=== PATIENT | male | born 1975 | race Caucasian/White ===

== ENCOUNTER 2022-07-29 22:04 | Emergency (ER) | payer MEDICAID ==
[~2022-07-29] VITALS: Ht 165.1 cm; Wt 90.7 kg
[2022-07-29 22:15] VITALS: BP_SYST 122
--- NOTE | 2022-07-29 22:21 | NUR ---
Patient triaged and remains on [facility] . VSS and patient appears in no acute distress at this time. Accompanied by EMS , awaiting available bed, and MD notified of need for MSE.
--- NOTE | 2022-07-30 01:35 | NUR ---
Patient to ER bed 6 to gown for evaluation. Side rails up. Report given to Emelyn WATT(reg).
--- NOTE | 2022-07-30 01:47 | NUR ---
Patient leaving hospital at this time. When asked to come back, patient said fuck you.
--- NOTE | 2022-07-30 01:52 | NUR ---
Patient walked back into hospital and walked back into room 6. Steady gait.
[2022-07-30 02:30] VITALS: BP_SYST 145
--- NOTE | 2022-07-30 02:30 | NUR ---
Patient given written and verbal discharge instructions and verbalizes understanding. ER MD discussed with patient the results and treatment provided. Patient in stable condition. ID arm band removed. Patient educated on pain management and to follow up with PMD. Pain Scale 0/10. Opportunity for questions provided and answered.
== END 2022-07-30 02:30 | disposition home or self-care (01) ==
LOC: EDBD 22:04 → SED 22:04
DX: F10.129 Alcohol abuse with intoxication, unspecified (principal); Y90.6 Blood alcohol level of 120-199 mg/100 ml
CPT/HCPCS: 99281

== ENCOUNTER 2022-09-10 19:43 | Emergency (ER) | payer MEDICAID ==
[~2022-09-10] VITALS: Ht 180.3 cm; Wt 124.7 kg
[2022-09-10 19:51] VITALS: BP_SYST 118
[2022-09-10 21:10] LABS: BASOPHILS % (AUTO) 0.4 % (0.0-2.0); EOSINOPHILS # (AUTO) 0.1 K/uL (0.0-0.4); EOSINOPHILS % (AUTO) 0.8 % (0.0-4.0); HEMATOCRIT 41.7 % (36-54); HEMOGLOBIN 13.9 g/dL (14.0-18.0); LYMPHOCYTES # (AUTO) 2.1 K/uL (1.0-5.5); LYMPHOCYTES % (AUTO) 23.8 % (20.5-51.5); MEAN CORPUSCULAR HEMOGLOBIN 29 pg (27-31); MEAN CORPUSCULAR HGB CONC 33 % (32-36); MEAN CORPUSCULAR VOLUME 89 fL (79.0-98.0); MONOCYTES # (AUTO) 0.8 K/uL (0.0-1.0); MONOCYTES % (AUTO) 8.7 % (1.7-9.3); NEUTROPHILS # (AUTO) 5.9 K/uL (1.8-7.7); NEUTROPHILS % (AUTO) 66.3 % (40.0-70.0); PLATELET COUNT (AUTO) 285 K/uL (130-430); RED BLOOD CELL COUNT(AUTO) 4.72 MIL/uL (4.2-6.2); WHITE BLOOD COUNT (AUTO) 8.9 K/uL (4.8-10.8)
[2022-09-10 21:24] LABS: ACETONE, SERUM NEGATIVE (NEGATIVE)
[2022-09-10] MEDS ORDERED: cloNIDine HCL 0.1 MG TABLET PO ONE (21:30)
[2022-09-10] MEDS ORDERED: ONDANSETRON 4 MG ODT TAB PO ONE (21:30)
[2022-09-10 21:33] LABS: ACETAMINOPHEN < 1 ug/mL (1-30); ALANINE AMINOTRANSFERASE 34 U/L (12-78); ALBUMIN 3.4 g/dL (3.4-4.8); ALCOHOL, BLOOD 275 mg/dL (<10); ANION GAP 11 (5-15); ASPARTATE AMINOTRANSFERASE 31 U/L (10-37); CALCIUM 7.8 mg/dL (8.4-11.0); CHLORIDE 104 mmol/L (98-107); CREATININE 1.11 mg/dL (0.55-1.30); GFR AFRICAN AMERICAN 92 mL/min (>90); GLUCOSE 99 mg/dL (70-99); TOTAL BILIRUBIN 0.2 mg/dL (0.0-1.0); UREA NITROGEN, BLOOD 9 mg/dL (8-21)
[2022-09-10 22:25] LABS: BARBITURATE, URINE NEGATIVE (NEG <=200); BENZODIAZEPINE, URINE POSITIVE (NEG <=150); CANNABINOID, URINE NEGATIVE (NEG <=50); COCAINE, URINE NEGATIVE (NEG <=150); METHAMPHETAMINES SCREEN,URINE NEGATIVE (NEG <=500); OPIATE, URINE NEGATIVE (NEG <=100); PHENCYCLIDINE SCREEN,URINE NEGATIVE (NEG <=25); UR TRICYCLIC ANTIDEPRESSANTS NEGATIVE (NEG <=300); URINE AMPHETAMINE NEGATIVE (NEG <=500); URINE METHADONE NEGATIVE (NEG <=200); URINE OXYCODONE SCREEN NEGATIVE (NEG <=100); URINE PROPOXYPHENE SCREEN NEGATIVE (NEG <=300)
--- NOTE | 2022-09-10 22:41 | NUR ---
Patient to [facility] [place]. Side rails up. Report given to SHUKRI ANDRES
--- NOTE | 2022-09-10 22:50 | NUR ---
pt in bed. slurred speach due to alcohol. pt denies pain
--- NOTE | 2022-09-11 00:14 | NUR ---
PT PROVIDED WATER AND SANDWHICH. PT ON MONITOR
[2022-09-11] MEDS ORDERED: cloNIDine HCL 0.1 MG TABLET ONE (00:24)
[2022-09-11] MEDS ORDERED: ONDANSETRON 4 MG ODT TAB ONE (00:43)
[2022-09-11] MEDS ORDERED: chlordiazePOXIDE HCL 25 MG CAPSULE PO ONE (02:45)
[2022-09-11] MEDS ORDERED: chlordiazePOXIDE HCL 25 MG CAPSULE ONE (03:51)
[2022-09-11 04:33] VITALS: BP_SYST 122
--- NOTE | 2022-09-11 04:33 | NUR ---
pt resting in bed.
--- NOTE | 2022-09-11 05:19 | NUR ---
pt a/ x 4 steady gait. no slurred speach
[2022-09-11] MEDS ORDERED: LIB25 PO (05:23)
--- NOTE | 2022-09-11 05:46 | NUR ---
printed out bus instructions for patient.
== END 2022-09-11 05:46 | disposition home or self-care (01) ==
LOC: SED 19:43
DX: F10.129 Alcohol abuse with intoxication, unspecified (principal); Z79.899 Other long term (current) drug therapy; Y90.6 Blood alcohol level of 120-199 mg/100 ml; Z20.822 Contact with and (suspected) exposure to COVID-19
CPT/HCPCS: 99283; 87426; 80307; 80053; 82009; 83690; 85025; 36415; G0482; Q0162; G0480; G0481

== ENCOUNTER 2022-09-11 11:48 | Emergency (ER) | payer MEDICAID ==
[~2022-09-11] VITALS: Ht 177.8 cm; Wt 111.1 kg
[~2022-09-11 11:48] MED LIST: LIB25 PO
[2022-09-11 12:03] VITALS: BP_SYST 111
--- NOTE | 2022-09-11 12:05 | NUR ---
Patient to ER bed 8 to gown for evaluation. Side rails up. Report given to ANAM WATT.
--- NOTE | 2022-09-11 12:06 | NUR ---
Report received from [facility] for continuity of care. Patient came from [employer] intoxicated and was sleeping. Merchandising Specialist called and patient to be escorted out, but patient was unable to walk. Merchandising Specialist held onto patient as he was stumbling and guided him to ground. Ambulance called. Blood sugar on scene was 156. Patient found to be lethargic. Will continue to monitor. Call light within reach.
--- NOTE | 2022-09-11 12:14 | NUR ---
ER at bedside examining patient.
[2022-09-11] MEDS ORDERED: NACL 0.9% 1,000 ML IV ONE (12:15)
[2022-09-11 12:53] LABS: BASOPHILS % (AUTO) 0.3 % (0.0-2.0); EOSINOPHILS % (AUTO) 0.6 % (0.0-4.0); HEMATOCRIT 35.5 % (36-54); HEMOGLOBIN 11.8 g/dL (14.0-18.0); LYMPHOCYTES # (AUTO) 1.6 K/uL (1.0-5.5); LYMPHOCYTES % (AUTO) 18.1 % (20.5-51.5); MEAN CORPUSCULAR HEMOGLOBIN 29 pg (27-31); MEAN CORPUSCULAR HGB CONC 33 % (32-36); MEAN CORPUSCULAR VOLUME 89 fL (79.0-98.0); MONOCYTES # (AUTO) 0.4 K/uL (0.0-1.0); MONOCYTES % (AUTO) 4.9 % (1.7-9.3); NEUTROPHILS # (AUTO) 6.8 K/uL (1.8-7.7); NEUTROPHILS % (AUTO) 76.1 % (40.0-70.0); PLATELET COUNT (AUTO) 280 K/uL (130-430)
--- NOTE | 2022-09-11 12:53 | NUR ---
Patient given written and verbal discharge instructions and verbalizes understanding. ER MD discussed with patient the results and treatment provided. Patient in stable condition. ID arm band removed. IV catheter removed intact and dressing applied, no active bleeding. Rx of ANTIBIOTIC given. Patient educated on pain management and to follow up with PMD. Opportunity for questions provided and answered. Medication side effect fact sheet provided.
[2022-09-11 13:06] LABS: ANION GAP 11 (5-15); CALCIUM 8.2 mg/dL (8.4-11.0); CHLORIDE 100 mmol/L (98-107); GFR AFRICAN AMERICAN 93 mL/min (>90); GLUCOSE 122 mg/dL (70-99); UREA NITROGEN, BLOOD 10 mg/dL (8-21)
[2022-09-11 13:22] LABS: ALANINE AMINOTRANSFERASE 37 U/L (12-78); ALBUMIN 3.7 g/dL (3.4-4.8); ASPARTATE AMINOTRANSFERASE 37 U/L (10-37); TOTAL BILIRUBIN 0.4 mg/dL (0.0-1.0)
[2022-09-11 13:37] LABS: ACETAMINOPHEN < 1 ug/mL (1-30)
[2022-09-11 13:38] LABS: ALCOHOL, BLOOD 437 mg/dL (<10)
[2022-09-11] MEDS ORDERED: THIAMINE HCL 100 MG TABLET PO ONE (13:45)
[2022-09-11 17:20] VITALS: BP_SYST 124
--- NOTE | 2022-09-11 17:23 | NUR ---
Patient given written and verbal discharge instructions and verbalizes understanding. ER MD discussed with patient the results and treatment provided. Patient in stable condition. ID arm band removed. IV catheter removed intact and dressing applied, no active bleeding. Patient educated on pain management and to follow up with PMD. Opportunity for questions provided and answered. Medication side effect fact sheet provided.
== END 2022-09-11 17:23 | disposition home or self-care (01) ==
LOC: SED 11:48
DX: F10.129 Alcohol abuse with intoxication, unspecified (principal); Y90.6 Blood alcohol level of 120-199 mg/100 ml; Z79.899 Other long term (current) drug therapy
CPT/HCPCS: 99284; 96360; 80053; 85025; 84484; 36415; 93005; G0482; J7030; G0480; G0481